=== PATIENT | female | born 1960 | race Caucasian/White ===

== ENCOUNTER 2019-08-12 18:45 | Emergency (ER) | payer BC ==
--- NOTE | 2019-08-12 20:21 | EDM.PDOC ---
ED HPI GENERAL MEDICAL PROBLEM - General Chief Complaint: Upper Extremity Injury/Pain Stated Complaint: LEFT ARM SWOLLEN Time Seen by Provider: 08/12/19 20:05 Source of Information: Reports: Patient History Limitations: Reports: No Limitations - History of Present Illness INITIAL COMMENTS - FREE TEXT/NARRATIVE: 59-year-old female concerned about left arm pain and swelling. She had a traumatic upper humerus fracture with surgery 1 week ago. She had a recheck yesterday with some dressing modifications. Today the proximal portion of the dressing on the upper arm feels too tight, her forearm and hand are swollen and it's uncomfortable. No shortness of breath or fever. Onset: Gradual (Over the past 24 hours) Associated Symptoms: Reports: No Other Symptoms - Related Data Allergies Allergy/AdvReac Type Severity Reaction Status Date / Time No Known Allergies Allergy Verified 08/12/19 19:53 Home Meds: Home Meds Aspirin [Ecotrin EC] 1 tab PO BID 08/12/19 [History] oxyCODONE 1 tab PO TID PRN 08/12/19 [History] Past Medical History - Past Surgical History GI Surgical History: Reports: Cholecystectomy Social & Family History - Tobacco Use Smoking Status *Q: Current Every Day Smoker Years of Tobacco use: 33 Packs/Tins Daily: 0.5 Review of Systems - Review of Systems Review Of Systems: See Below Constitutional: Denies: Fever Respiratory: Reports: No Symptoms Cardiovascular: Reports: No Symptoms GI/Abdominal: Reports: No Symptoms. Denies: Nausea Skin: Reports: Bruising (Significant bruising to the upper arm and proximal forearm) Neurological: Denies: Paresthesia ED EXAM, GENERAL - Physical Exam Exam: See Below Exam Limited By: No Limitations General Appearance: Alert, No Apparent Distress Respiratory/Chest: No Respiratory Distress Cardiovascular: Regular Rate, Rhythm Extremities: Other (Exam is otherwise limited to the left upper extremity. The patient has circumferential dressings of the upper arm. These were removed and exposed very long surgical incision closed by tyree. There is significant bruising from the shoulder through the upper arm into the proximal forearm. She has pitting edema of the forearm and hand. No redness or warmth. She has a good radial pulse.) Neurological: Alert, Oriented Course - Vital Signs Last Recorded V/S: Last Vital Signs Temp 99.5 F 08/12/19 20:01 Pulse 92 08/12/19 20:01 Resp 18 08/12/19 20:01 BP 148/71 H 08/12/19 20:01 Pulse Ox 98 08/12/19 20:01 - Re-Assessments/Exams Free Text/Narrative Re-Assessment/Exam: 08/12/19 20:19 The dressing was removed which provided relief from the tightness of the dressing. It was replaced somewhat looser but supportive. The edema is likely due to the constriction and dependent nature of the arm, and should improve. She is returning home tomorrow, if it doesn't continue to improve over the next several days an ultrasound of the arm may be needed. Departure - Departure Time of Disposition: 20:39 Disposition: Home, Self-Care 01 Clinical Impression: Postoperative edema - Discharge Information Instructions: Edema, [id number] Referrals: PCP,None [Primary Care Provider] - Forms: ED Department Discharge Care Plan Goals: Continue recommendations from her orthopedic surgeon. Recheck in the next 48-72 hours if swelling isn't improving.
== END 2019-08-12 20:39 | disposition home or self-care (01) ==
LOC: JP.ED 18:45
DX: M96.89 Other intraoperative and postprocedural complications and disorders of the musculoskeletal system (principal); R22.32 Localized swelling, mass and lump, left upper limb; F17.210 Nicotine dependence, cigarettes, uncomplicated; Y83.8 Other surgical procedures as the cause of abnormal reaction of the patient, or of later complication, without mention of misadventure at the time of the procedure
CPT/HCPCS: 99283